=== PATIENT | male | born 1960 | race Caucasian/White ===

== ENCOUNTER 2017-11-11 10:38 | Emergency (ER) | payer OTHER ==
[~2017-11-11] VITALS: Ht 193 cm; Wt 106.0 kg
[2017-11-11 13:14] LABS: BASOPHILS # (AUTO) 0.01 x10^3/uL (0-0.1); BASOPHILS % (AUTO) 0 % (0-1); EOSINOPHILS # (AUTO) 0.03 x10^3/uL (0-0.4); EOSINOPHILS % (AUTO) 0 % (1-7); LYMPHOCYTES # (AUTO) 0.68 x10^3/uL (1-3.4); LYMPHOCYTES % (AUTO) 7 % (22-44); MD NO; MEAN CORPUSCULAR HEMOGLOBIN 30.3 pg (27.5-34.5); MEAN CORPUSCULAR VOLUME 89.3 fL (81-97); MEAN PLATELET VOLUME 9.6 fL (7.4-10.4); MONOCYTES # (AUTO) 0.86 x10^3/uL (0.2-0.8); MONOCYTES % (AUTO) 8 % (2-9); NEUTROPHILS # (AUTO) 8.75 x10^3/uL (1.8-6.8); NEUTROPHILS % (AUTO) 85 % (42-75); PLATELET COUNT 142 x10^3/uL (130-400); RED BLOOD COUNT 5.34 x10^6/uL (4.38-5.82); RED CELL DISTRIBUTION WIDTH 12.9 % (9.4-14.8)
[2017-11-11 13:22] LABS: ALBUMIN 3.7 g/dL (3.4-5.0); ANION GAP 7 mmol/L (5-15); CHLORIDE 103 mmol/L (98-107)
[2017-11-11 13:32] LABS: ALANINE AMINOTRANSFERASE 48 U/L (12-78); ALKALINE PHOSPHATASE 73 U/L (45-117); BILIRUBIN,TOTAL 0.6 mg/dL (0.2-1.0); CALCIUM 8.5 mg/dL (8.5-10.1); T4 (THYROXINE) 10.2 mcg/dL (4.5-12.1); TROPONIN I < 0.015 ng/mL (0.000-0.045)
[2017-11-11 13:33] LABS: MICROSCOPIC NOT IND
[2017-11-11 13:38] LABS: CREATINE KINASE, TOTAL 123 U/L (39-308)
[2017-11-11 13:42] LABS: CULTURE INDICATED? NO
[2017-11-11] MEDS ORDERED: SODIUM CHLORIDE 0.9% 1,000ML IVBOLUS ONE (14:00)
[2017-11-11 14:33] LABS: ACETONE, SERUM Negative (Negative)
[2017-11-11 15:12] LABS: HEMOGLOBIN A1C 10.2 % (4.2-6.3)
[2017-11-11 15:33] VITALS: BP 133/76
== END 2017-11-11 16:02 | disposition home or self-care (01) ==
LOC: ED 12:51
DX: R73.9 Hyperglycemia, unspecified (principal); F17.200 Nicotine dependence, unspecified, uncomplicated; G89.29 Other chronic pain
CPT/HCPCS: 36415; 71045; 80053; 81003; 82010; 82550; 82553; 82800; 83036; 83735; 84436; 84443; 84484; 85025; 93005; 96360; 96361; 99285; J7030

== ENCOUNTER 2017-11-12 13:33 | Inpatient (IN) | payer OTHER ==
[~2017-11-12] VITALS: Ht 193 cm; Wt 103.4 kg
[2017-11-12] MEDS ORDERED: SODIUM CHLORIDE FLUSH 10ML SYR IVF ONE (17:00)
[2017-11-12 17:09] LABS: ALBUMIN 3.3 g/dL (3.4-5.0); ANION GAP 7 mmol/L (5-15); CALCIUM 8.3 mg/dL (8.5-10.1); CHLORIDE 105 mmol/L (98-107); CREATININE 1.43 mg/dL (0.7-1.3)
[2017-11-12 17:13] LABS: TROPONIN I < 0.015 ng/mL (0.000-0.045)
[2017-11-12 17:25] LABS: MEAN CORPUSCULAR HEMOGLOBIN 30.6 pg (27.5-34.5); MEAN CORPUSCULAR HGB CONC 33.8 g/dL (33.2-36.2); MEAN CORPUSCULAR VOLUME 90.6 fL (81-97); MEAN PLATELET VOLUME 9.5 fL (7.4-10.4); PLATELET COUNT 139 x10^3/uL (130-400); RED CELL DISTRIBUTION WIDTH 13.1 % (9.4-14.8)
[2017-11-12 17:49] LABS: BASOPHILS # (AUTO) 0.02 x10^3/uL (0-0.1); BASOPHILS % (AUTO) 0 % (0-1); EOSINOPHILS # (AUTO) 0.08 x10^3/uL (0-0.4); EOSINOPHILS % (AUTO) 1 % (1-7); LYMPHOCYTES % (AUTO) 13 % (22-44); MD SCAN; MONOCYTES # (AUTO) 0.74 x10^3/uL (0.2-0.8); MONOCYTES % (AUTO) 11 % (2-9); NEUTROPHILS # (AUTO) 5.07 x10^3/uL (1.8-6.8); NEUTROPHILS % (AUTO) 75 % (42-75)
[2017-11-12] MEDS ORDERED: OMNIPAQUE 350 MG/ML, 150 ML BOTTLE ONE (18:35)
[2017-11-12] MEDS ORDERED: INSULIN REGULAR 100 UNITS/ML, 3ML VIAL SQ-INSULIN ONE (19:00)
[2017-11-12] MEDS ORDERED: INSULIN REGULAR 100 UNITS/ML, 3ML VIAL ONE (19:02)
[2017-11-12] MEDS: SODIUM CHLORIDE 0.9% 1,000 ML IV SCH (19:16)
[2017-11-12] MEDS ORDERED: BISACODYL 10 MG SUPP PR PRN (19:30)
[2017-11-12] MEDS ORDERED: POLYETHYLENE GLYCOL 17 GM PACKET PO PRN (19:30)
[2017-11-12] MEDS ORDERED: ONDANSETRON 2MG/ML, 2ML IVPush PRN (19:30)
[2017-11-12] MEDS ORDERED: NITROGLYCERIN 0.4 MG BOTTLE (25 TABS) SL PRN (19:30)
[2017-11-12] MEDS ORDERED: ACETAMINOPHEN 325 MG TABLET PO PRN (19:30)
[2017-11-12 19:56] LABS: CLOSTRIDIUM DIFFICILE ANTIGEN NEGATIVE; CLOSTRIDIUM DIFFICILE TOXIN NEGATIVE (Negative)
[2017-11-12] MEDS: INSULIN LISPRO 100 UNITS/ML, PEN SQ-INSULIN SCH (21:00)
[2017-11-12] MEDS ORDERED: HEPARIN 5,000 UNITS/ML, 1ML ONE (21:40)
[2017-11-12] MEDS: HEPARIN 5,000 UNITS/ML, 1ML SQ SCH (21:42)
[2017-11-12 23:10] VITALS: BP 136/80
[2017-11-12 23:13] VITALS: BP 136/80
[2017-11-12 23:22] LABS: TROPONIN I < 0.015 ng/mL (0.000-0.045)
[2017-11-13 02:59] VITALS: BP 128/78
[2017-11-13] MEDS: HEPARIN 5,000 UNITS/ML, 1ML SQ SCH ×3 (04:18→20:54)
[2017-11-13 05:16] LABS: CHLORIDE 108 mmol/L (98-107)
[2017-11-13 05:21] LABS: BASOPHILS # (AUTO) 0.01 x10^3/uL (0-0.1); BASOPHILS % (AUTO) 0 % (0-1); EOSINOPHILS # (AUTO) 0.08 x10^3/uL (0-0.4); EOSINOPHILS % (AUTO) 1 % (1-7); LYMPHOCYTES # (AUTO) 0.84 x10^3/uL (1-3.4); LYMPHOCYTES % (AUTO) 13 % (22-44); MD NO; MEAN CORPUSCULAR HEMOGLOBIN 30.7 pg (27.5-34.5); MEAN CORPUSCULAR HGB CONC 34.2 g/dL (33.2-36.2); MEAN CORPUSCULAR VOLUME 89.7 fL (81-97); MEAN PLATELET VOLUME 9.9 fL (7.4-10.4); MONOCYTES # (AUTO) 1.12 x10^3/uL (0.2-0.8); MONOCYTES % (AUTO) 18 % (2-9); NEUTROPHILS # (AUTO) 4.24 x10^3/uL (1.8-6.8); NEUTROPHILS % (AUTO) 67 % (42-75); PLATELET COUNT 144 x10^3/uL (130-400); RED BLOOD COUNT 5.26 x10^6/uL (4.38-5.82); RED CELL DISTRIBUTION WIDTH 13.1 % (9.4-14.8)
[2017-11-13 05:26] LABS: ALANINE AMINOTRANSFERASE 38 U/L (12-78); ALBUMIN 3.2 g/dL (3.4-5.0); ALKALINE PHOSPHATASE 64 U/L (45-117); ANION GAP 8 mmol/L (5-15); BILIRUBIN,TOTAL 0.7 mg/dL (0.2-1.0); CALCIUM 8.5 mg/dL (8.5-10.1); CHOL/HDL RATIO 3.7; CHOLESTEROL, TOTAL 149 mg/dL (140-239); CREATININE 0.98 mg/dL (0.7-1.3); HDL CHOL % 27 % (26-37); HDL CHOLESTEROL (DIRECT) 40 mg/dL (40-60); LDL CHOLESTEROL,CALCULATED 92 mg/dL (54-169); LDL/HDL RATIO 2.3 (0.5-3.0); TOTAL PROTEIN 6.6 g/dL (6.4-8.2); TRIGLYCERIDES 87 mg/dL (50-200); TROPONIN I < 0.015 ng/mL (0.000-0.045); VLDL CHOLESTEROL 17 mg/dL (0-25)
[2017-11-13] MEDS: ASPIRIN 325 MG TABLET EC PO SCH (06:02)
[2017-11-13] MEDS: INSULIN LISPRO 100 UNITS/ML, PEN SQ-INSULIN SCH ×4 (07:00→20:55)
[2017-11-13 07:20] VITALS: BP 134/88
[2017-11-13] MEDS ORDERED: SENNA/DOCUSATE TABLET PO SCH (09:00)
[2017-11-13] MEDS: SODIUM CHLORIDE 0.9% 1,000 ML IV SCH ×2 (11:06→21:11)
[2017-11-13] MEDS: LISINOPRIL 5 MG TABLET PO SCH (11:06)
[2017-11-13 15:00] VITALS: BP 129/84
[2017-11-13 15:11] VITALS: BP 126/82
[2017-11-13 16:59] LABS: CRYPTOSPORIDIUM ANTIGEN Negative (Negative)
[2017-11-13 17:15] LABS: HEMOGLOBIN A1C 10.1 % (4.2-6.3)
[2017-11-13] MEDS ORDERED: DIPHENOXYLATE/ATROPINE TABLET PO PRN (17:30)
[2017-11-13] MEDS ORDERED: CALCIUM CARBONATE 500 MG TAB.CHEW PO PRN (17:30)
[2017-11-13] MEDS: LACTOBACILLUS CHEW TABLET PO SCH ×2 (17:31→20:53)
[2017-11-13] MEDS: PANTOPRAZOLE 40 MG IV IVPush SCH (18:30)
[2017-11-13 20:06] VITALS: BP 112/72
[2017-11-13] MEDS: morphine SULFATE 10 MG/ML, 1ML IVPush PRN (20:56)
[2017-11-13] MEDS ORDERED: OMNIPAQUE 350 MG/ML, 100ML BOTTLE ONE (22:00)
[2017-11-14 02:56] VITALS: BP 119/77
[2017-11-14 02:58] VITALS: BP_SYST 106; BP_SYST 112; BP_DIAS 65; BP_DIAS 76
[2017-11-14] MEDS: morphine SULFATE 10 MG/ML, 1ML IVPush PRN ×3 (03:40→20:23)
[2017-11-14 04:35] LABS: MEAN CORPUSCULAR HEMOGLOBIN 29.9 pg (27.5-34.5); MEAN CORPUSCULAR HGB CONC 33.4 g/dL (33.2-36.2); MEAN CORPUSCULAR VOLUME 89.7 fL (81-97); PLATELET COUNT 139 x10^3/uL (130-400); RED BLOOD COUNT 4.74 x10^6/uL (4.38-5.82)
[2017-11-14 04:47] LABS: ALANINE AMINOTRANSFERASE 31 U/L (12-78); ALBUMIN 2.8 g/dL (3.4-5.0); ANION GAP 6 mmol/L (5-15); CHLORIDE 107 mmol/L (98-107); CREATININE 1.12 mg/dL (0.7-1.3)
[2017-11-14 04:50] LABS: ALKALINE PHOSPHATASE 54 U/L (45-117); BILIRUBIN,TOTAL 0.8 mg/dL (0.2-1.0); TOTAL PROTEIN 5.8 g/dL (6.4-8.2)
[2017-11-14 05:04] LABS: MD YES
[2017-11-14 05:08] LABS: BAND#(MANUAL) 0.18 x10^3/uL; BANDS%(MANUAL) 4 % (0-7); BASOS#(MANUAL) 0.04 x10^3/uL (0-0.1); BASOS% (MANUAL) 1 % (0-1); EOS#(MANUAL) 0.22 x10^3/uL (0.0-0.4); EOS% (MANUAL) 5 % (1-7); LYMPH#(MANUAL) 1.41 x10^3/uL (1-3.4); LYMPHS% (MANUAL) 32 % (22-44); MONOS#(MANUAL) 0.79 x10^3/uL (0.3-2.7); MONOS% (MANUAL) 18 % (2-9); REACTIVE LYMPHS # (MANUAL) 0.18 x10^3/uL (0-0); REACTIVE LYMPHS % (MANUAL) 4 % (0-0); SEG#(MANUAL) 1.58 x10^3/uL (1.8-6.8); SEGS% (MANUAL) 36 % (42-75)
[2017-11-14 05:09] LABS: <PLATELET ESTIMATE> ADEQUATE; <PLT MORPHOLOGY> NORMAL PLT MORPH; <RBC MORPHOLOGY> NORMAL
[2017-11-14] MEDS ORDERED: ASPIRIN 81 MG TABLET EC ONE (05:22)
[2017-11-14] MEDS: PANTOPRAZOLE 40 MG IV IVPush SCH (05:24)
[2017-11-14] MEDS: LACTOBACILLUS CHEW TABLET PO SCH ×4 (05:25→20:24)
[2017-11-14] MEDS: HEPARIN 5,000 UNITS/ML, 1ML SQ SCH ×3 (05:26→20:24)
[2017-11-14] MEDS: ASPIRIN 325 MG TABLET EC PO SCH (05:26)
[2017-11-14 07:10] VITALS: BP_SYST 107; BP_SYST 111; BP_DIAS 72; BP_DIAS 79
[2017-11-14] MEDS: SODIUM CHLORIDE 0.9% 1,000 ML IV SCH ×3 (07:30→23:05)
[2017-11-14] MEDS: INSULIN LISPRO 100 UNITS/ML, PEN SQ-INSULIN SCH ×4 (07:46→21:52)
[2017-11-14] MEDS: LISINOPRIL 5 MG TABLET PO SCH (09:03)
[2017-11-14] MEDS: CEFTRIAXONE PMX 1GM/50ML 50 ML IV SCH (09:39)
[2017-11-14] MEDS: METRONIDAZOLE PMX 500MG/100ML 100 ML IV SCH ×2 (10:37→17:17)
[2017-11-14] MEDS ORDERED: MAGNESIUM SULFATE PMX 2GM/50ML 50 ML IV ONE (13:00)
[2017-11-14 16:23] VITALS: BP 113/67
[2017-11-14 18:31] VITALS: BP 101/60
[2017-11-14 18:50] VITALS: BP 115/65
[2017-11-14] MEDS: PANTOPROZOLE 40MG TABLET PO SCH (20:24)
[2017-11-14] MEDS: INSULIN GLARGINE 100 UNITS/ML, PEN SQ-INSULIN SCH (21:52)
[2017-11-15 00:59] VITALS: BP 120/73
[2017-11-15] MEDS: morphine SULFATE 10 MG/ML, 1ML IVPush PRN (01:11)
[2017-11-15] MEDS: METRONIDAZOLE PMX 500MG/100ML 100 ML IV SCH ×3 (01:11→17:00)
[2017-11-15 05:49] LABS: BASOPHILS # (AUTO) 0.01 x10^3/uL (0-0.1); BASOPHILS % (AUTO) 0 % (0-1); EOSINOPHILS # (AUTO) 0.17 x10^3/uL (0-0.4); EOSINOPHILS % (AUTO) 5 % (1-7); LYMPHOCYTES # (AUTO) 1.47 x10^3/uL (1-3.4); LYMPHOCYTES % (AUTO) 39 % (22-44); MD NO; MEAN CORPUSCULAR HGB CONC 33.4 g/dL (33.2-36.2); MEAN CORPUSCULAR VOLUME 89.8 fL (81-97); MEAN PLATELET VOLUME 9.4 fL (7.4-10.4); MONOCYTES # (AUTO) 0.65 x10^3/uL (0.2-0.8); MONOCYTES % (AUTO) 17 % (2-9); NEUTROPHILS % (AUTO) 40 % (42-75); PLATELET COUNT 140 x10^3/uL (130-400); RED BLOOD COUNT 4.46 x10^6/uL (4.38-5.82); RED CELL DISTRIBUTION WIDTH 13.2 % (9.4-14.8)
[2017-11-15 05:52] LABS: ANION GAP 7 mmol/L (5-15); CHLORIDE 108 mmol/L (98-107)
[2017-11-15] MEDS: ASPIRIN 325 MG TABLET EC PO SCH (06:00)
[2017-11-15] MEDS ORDERED: ASPIRIN 81 MG TABLET EC ONE (06:31)
[2017-11-15] MEDS: LACTOBACILLUS CHEW TABLET PO SCH ×4 (06:33→20:24)
[2017-11-15] MEDS: HEPARIN 5,000 UNITS/ML, 1ML SQ SCH ×3 (06:33→22:00)
[2017-11-15] MEDS: INSULIN LISPRO 100 UNITS/ML, PEN SQ-INSULIN SCH ×4 (06:37→20:35)
[2017-11-15 07:40] VITALS: BP 120/82
[2017-11-15] MEDS: PANTOPROZOLE 40MG TABLET PO SCH ×2 (08:42→20:24)
[2017-11-15] MEDS: LISINOPRIL 5 MG TABLET PO SCH (08:43)
[2017-11-15] MEDS: CEFTRIAXONE PMX 1GM/50ML 50 ML IV SCH (08:43)
[2017-11-15] MEDS: SODIUM CHLORIDE 0.9% 1,000 ML IV SCH (09:44)
[2017-11-15 14:29] VITALS: BP 116/76
[2017-11-15] MEDS: AZITHROMYCIN 500 MG TABLET PO SCH (16:01)
[2017-11-15 19:02] VITALS: BP 128/81
[2017-11-15] MEDS: INSULIN GLARGINE 100 UNITS/ML, PEN SQ-INSULIN SCH (20:28)
[2017-11-16 01:05] VITALS: BP 117/72
[2017-11-16] MEDS: METRONIDAZOLE PMX 500MG/100ML 100 ML IV SCH ×2 (01:44→09:19)
[2017-11-16 05:28] LABS: ANION GAP 5 mmol/L (5-15); CALCIUM 7.8 mg/dL (8.5-10.1); CHLORIDE 109 mmol/L (98-107); CREATININE 0.94 mg/dL (0.7-1.3)
[2017-11-16 05:30] LABS: BASOPHILS # (AUTO) 0.02 x10^3/uL (0-0.1); BASOPHILS % (AUTO) 1 % (0-1); EOSINOPHILS # (AUTO) 0.16 x10^3/uL (0-0.4); EOSINOPHILS % (AUTO) 4 % (1-7); LYMPHOCYTES # (AUTO) 1.37 x10^3/uL (1-3.4); LYMPHOCYTES % (AUTO) 32 % (22-44); MD NO; MEAN CORPUSCULAR HGB CONC 33.3 g/dL (33.2-36.2); MEAN CORPUSCULAR VOLUME 89.9 fL (81-97); MEAN PLATELET VOLUME 9.6 fL (7.4-10.4); MONOCYTES % (AUTO) 14 % (2-9); NEUTROPHILS # (AUTO) 2.16 x10^3/uL (1.8-6.8); NEUTROPHILS % (AUTO) 50 % (42-75); PLATELET COUNT 167 x10^3/uL (130-400); RED CELL DISTRIBUTION WIDTH 13.1 % (9.4-14.8)
[2017-11-16] MEDS: HEPARIN 5,000 UNITS/ML, 1ML SQ SCH (06:00)
[2017-11-16] MEDS: ASPIRIN 325 MG TABLET EC PO SCH (06:00)
[2017-11-16] MEDS ORDERED: ASPIRIN 81 MG TABLET EC ONE (06:21)
[2017-11-16] MEDS: LACTOBACILLUS CHEW TABLET PO SCH ×2 (06:28→12:28)
[2017-11-16] MEDS: INSULIN LISPRO 100 UNITS/ML, PEN SQ-INSULIN SCH ×2 (06:30→12:29)
[2017-11-16 07:35] VITALS: BP 129/83
[2017-11-16] MEDS: AZITHROMYCIN 500 MG TABLET PO SCH (08:36)
[2017-11-16] MEDS: PANTOPROZOLE 40MG TABLET PO SCH (08:36)
[2017-11-16] MEDS: CEFTRIAXONE PMX 1GM/50ML 50 ML IV SCH (08:36)
[2017-11-16] MEDS: LISINOPRIL 5 MG TABLET PO SCH (09:19)
[2017-11-16] MEDS ORDERED: CEFD300C37 PO (10:59)
[2017-11-16] MEDS ORDERED: LISI5TAB7 PO (10:59)
[2017-11-16] MEDS ORDERED: OMEP-110 PO (10:59)
[2017-11-16] MEDS ORDERED: ACID1TAB7 PO (10:59)
[2017-11-16] MEDS ORDERED: ASPI-650 PO (10:59)
[2017-11-16] MEDS ORDERED: METF500T PO (10:59)
[2017-11-16] MEDS ORDERED: METR500T PO (10:59)
[2017-11-16] MEDS ORDERED: GLIM2TAB2 PO (10:59)
[2017-11-16] MEDS ORDERED: AZIT500T5 PO (10:59)
[2017-11-16] MEDS ORDERED: SIMV40TA PO (11:03)
[2017-11-16 12:31] VITALS: BP 133/85
== END 2017-11-16 13:52 | disposition home or self-care (01) | DRG 872 ==
LOC: ED 18:11 → EDIP 18:22 → 5SO 22:49 → 4NOR 11-14 18:19
PROVIDERS: ADMIT Hospitalist; ATTEND Hospitalist
DX: A41.9 Sepsis, unspecified organism (principal); E11.65 Type 2 diabetes mellitus with hyperglycemia; E44.1 Mild protein-calorie malnutrition; E83.42 Hypomagnesemia; K57.32 Diverticulitis of large intestine without perforation or abscess without bleeding; K21.9 Gastro-esophageal reflux disease without esophagitis; E78.5 Hyperlipidemia, unspecified; E86.0 Dehydration; F17.290 Nicotine dependence, other tobacco product, uncomplicated; G89.29 Other chronic pain; G90.8 Other disorders of autonomic nervous system; B96.89 Other specified bacterial agents as the cause of diseases classified elsewhere; M54.5 Low back pain; I44.30 Unspecified atrioventricular block; Z68.27 Body mass index [BMI] 27.0-27.9, adult; Z82.49 Family history of ischemic heart disease and other diseases of the circulatory system; Z79.84 Long term (current) use of oral hypoglycemic drugs; Z79.899 Other long term (current) drug therapy; Z71.3 Dietary counseling and surveillance
CPT/HCPCS: 36415; 70498; 71045; 71275; 74177; 78452; 80048; 80053; 80061; 82040; 82962; 83036; 83605; 83735; 84100; 84145; 84484; 85025; 87046; 87324; 87328; 87329; 87427; 89055; 93005; 93017; 93306; 96372; 99285; J0696; J1644; Q9967; A9502; C9113; C9898; J1815; J2270; J3475; J7030